=== PATIENT | male | born 1965 | race Caucasian/White ===

== ENCOUNTER 2019-02-08 18:32 | Emergency (ER) | payer OTHER ==
[2019-02-08 18:39] VITALS: BMI 34.4
--- NOTE | 2019-02-08 18:48 | PDOC ---
History of Present Illness - General Chief Complaint: Wheezing Stated Complaint: ASTHMA/NEEDS PUMP, Fever, HTN Time Seen by Provider: 02/08/19 18:48 History Source: Patient Exam Limitations: No Limitations - History of Present Illness Initial Comments: 53 yo M w a pmh of Asthma presents to the ER with difficulty breathing, wheezing , sputum production, fevers and diffuse body pains. He says he has been experiencing difficulty breathing for two months now, but his fevers and extreme shortness of breath began yesterday. He states that he feels like he is having an asthma exacerbation because this is how he usually feels when his exacerbations happen. He has needed to use his albuterol pump more frequently than usual over the past few days. He has never been intubated or to the ICU. He has not been hospitalized for an asthma exacerbation since he was 24 at which point he states he had pneumonia. He denies having chest pain, headache, blurry vision, diarrhea, constipation, dysuria, frequency, urgency, numbness, or tingling. PCP: Audie Tello PSH: None reported Social Hx: Denies smoking, drinking, or other substance usage Allergies: NKDA, patient thinks he has multiple other environmental allergies but unsure as to what they are. Past History - Past Medical History Allergies/Adverse Reactions: Allergies Allergy/AdvReac Type Severity Reaction Status Date / Time No Known Allergies Allergy Verified 02/08/19 18:40 Home Medications: Ambulatory Orders Albuterol Sulfate [Albuterol Sulfate Hfa] 8.5 gm IH TID PRN 02/08/19 Prednisone [Prednisone 50 MG TABLETS] 50 mg PO DAILY 4 Days #4 tablet 02/08/19 Asthma: Yes COPD: No HTN: (?) - Suicide/Smoking/Psychosocial Hx Smoking History: Never smoked Information on smoking cessation initiated: No Hx Alcohol Use: No Drug/Substance Use Hx: No Review of Systems - Review of Systems Able to Perform ROS?: Yes Comments:: CONSTITUTIONAL: Present: Fevers, chills Absent: no fatigue EYES: Absent: visual changes ENT: Absent: ear pain, no sore throat CARDIOVASCULAR: Absent: chest pain, no palpitations RESPIRATORY: Present: Cough, SOB, sputum production. GI: Absent: abdominal pain, no nausea, no vomiting, no constipation, no diarrhea GENITOURINARY: Absent: dysuria, no frequency, no hematuria MUSKULOSKELETAL: Present: Myalgia Absent: back pain, no arthralgia SKIN: Absent: rash NEURO: Absent: headache *Physical Exam - Vital Signs Last Vital Signs Temp Pulse Resp BP Pulse Ox 101.1 F H 96 H 20 187/102 H 96 02/08/19 18:35 02/08/19 18:35 02/08/19 18:35 02/08/19 18:35 02/08/19 18:35 - Physical Exam Comments: GENERAL: Well-appearing, well-nourished. No apparent distress. HEENT: Normocephalic, atraumatic. PERRL, EOM intact. CARDIOVASCULAR: Normal S1, S2. Tachycardic rate and regular rhythm. PULMONARY: clear evidence of respiratory distress. There is diffuse expiratory wheezes throughout all lung jimenez. No rales or rhonchi. ABDOMEN: Soft, non-distended, non-tender. EXTREMITIES: Normal ROM in all four extremities. No gross deformities. SKIN: Hot, sweaty. No rash NEUROLOGICAL: No focal neurological deficits. ED Treatment Course - LABORATORY CBC & Chemistry Diagram: 02/08/19 19:28 02/08/19 19:28 Medical Decision Making - Medical Decision Making 53 yo M w a pmh of Asthma presents to the ER with difficulty breathing, wheezing , sputum production, fevers and diffuse body pains. He says he has been experiencing difficulty breathing for two months now, but his fevers and extreme shortness of breath began yesterday. He states that he feels like he is having an asthma exacerbation because this is how he usually feels when his exacerbations happen. He has needed to use his albuterol pump more frequently than usual over the past few days. He has never been intubated or to the ICU. He has not been hospitalized for an asthma exacerbation since he was 24 at which point he states he had pneumonia. VS: Febrile, tachycardic, hypertensive DDx IBNLT: Asthma, PNA, pneumothorax, ACS/ID, influenza, Sepsis - other infection, dissection, PE. Plan: Labs, cultures, ekg, cxr, duonebs, steroids, IV hydration, flu swab, analgesia, re-assess. CXR shows no infiltrate. Flu negative. Repeat BP 165/88 2nd repeat: 157/90 Patient's lactic acid elevated to 2.7 - gave him 2 L of fluid. - Patient feels much better after duonebs and steroids. He has no more complaints and requests discharge. - Repeat lactic wnl after 1 L of fluid. Will DC patient with 4 day course of prednisone and have him FU w his PCP *DC/Admit/Observation/Transfer Diagnosis at time of Disposition: URI (upper respiratory infection), Asthma exacerbation - Discharge Dispostion Disposition: HOME Condition at time of disposition: Improved Decision to Admit order: No - Prescriptions Prescriptions: Prednisone [Prednisone 50 MG TABLETS] 50 mg PO DAILY 4 Days #4 tablet - Referrals Referrals: ON STAFF,NOT [Primary Care Provider] - Audie Tello MD [Non Staff, Medical] - - Patient Instructions Printed Discharge Instructions: Asthma -- Adult Additional Instructions: You came into the ER with shortness of breath and difficulty breathing. We gave you some breathing treatments, steroids and IV hydration which made you feel much better. Drink plenty of fluids and take motrin/ibuprofen/advil or tylenol as needed for pain control. [facility] to [facility] once a day for the next 4 days. Please make sure to go and pick it up. Come back to the ER if you experience more shortness of breath, chest pain, difficulty breathing, get a high fever, or have any other new or worsening concerns. Please make sure to call up your primary care doctor in the next 24 to 48 hours and schedule and appointment with him to follow up and make sure you are getting better. Print Language: UGANDAN - Post Discharge Activity
[2019-02-08] MEDS ORDERED: methylPREDNISolone NA SUCC 125 MG/2 ML VIAL IVPB ONE (18:56)
[2019-02-08] MEDS ORDERED: SODIUM CHLORIDE 1,000 ML IV STA (18:56)
[2019-02-08] MEDS ORDERED: ALBUTEROL SO4 0.083% IH SOL 2.5 MG/3 ML VIAL.NEB. NEB ONE (18:56)
[2019-02-08] MEDS ORDERED: SODIUM CHLORIDE 2,994 ML IV ONE (18:58)
[2019-02-08] MEDS ORDERED: IBUPROFEN 400 MG TABLET (FP) PO ONE (19:09)
[2019-02-08 19:38] LABS: BASO % 0.8 % (0-2.0); EOS % 5.5 % (0-4.5); HEMATOCRIT 45.6 % (35.4-49); HEMOGLOBIN 15.3 GM/dL (11.7-16.9); LYMPH % 17.1 % (8-40); MCH 30.4 pg (25.7-33.7); MCHC 33.5 g/dl (32.0-35.9); MEAN CELL VOLUME 90.7 fl (80-96); MEAN PLT VOLUME 8.6 fl (7.5-11.1); MONO % 7.6 % (3.8-10.2); PLATELET COUNT 239 K/MM3 (134-434); RBC 5.03 M/mm3 (4.00-5.60); WHITE BLOOD COUNT 10.4 K/mm3 (4.0-10.0)
[2019-02-08] MEDS ORDERED: IBUPROFEN 600 MG TABLET (FP) PO ONE (19:56)
[2019-02-08] MEDS ORDERED: methylPREDNISolone NA SUCC 125 MG/2 ML VIAL ONE (19:56)
[2019-02-08] MEDS ORDERED: ALBUTEROL SO4 2.5/IPRATROPIUM 0.5 INH SOL 3 ML VIAL.NEB. NEB ONE ×2 (19:56→20:15)
[2019-02-08 20:09] LABS: ALBUMIN 3.9 g/dl (3.4-5.0); ALK PHOS 92 U/L (45-117); ANION GAP 11 MMOL/L (8-16); BILIRUBIN,TOTAL 0.3 mg/dL (0.2-1); BLOOD UREA NITROGEN 21 mg/dL (7-18); CALCIUM 8.4 mg/dL (8.5-10.1); CHLORIDE 104 mmol/L (98-107); CO2 27 mmol/L (21-32); GLUCOSE,RANDOM 97 mg/dL (74-106); POTASSIUM 3.8 mmol/L (3.5-5.1); SGOT/AST 31 U/L (15-37); SGPT/ALT 76 U/L (13-61); SODIUM 142 mmol/L (136-145); TOT PROT 7.6 g/dl (6.4-8.2)
--- NOTE | 2019-02-08 20:35 | PDOC ---
Attending Attestation - ED Attending Attestation I have performed the following: I have examined & evaluated the patient, The case was reviewed & discussed with the resident, I agree w/resident's findings & plan - HPI HPI: 02/08/19 20:36 The patient is a 53 year old male, with a significant past medical history of asthma, who presents to the emergency department with, difficulty breathing, wheezing, and diffuse body aches. Patient notes his difficulty breathing has been ongoing for 2 months and the remainder of his symptoms onset yesterday. He denies any recent chest pain or headache. Allergies: NKDA Past surgical history: None reported. Social History: Nonsmoker. Denies EtOH use and recreational drug use. Primary Care Physician: Dr. Audie Tello <Inez Ibarra - Last Filed: 02/08/19 20:36> - Resident Resident Name: Joseph Morrell - HPI HPI: 2 months of symptoms characterized as mild persistent cough with sensation of chest congestion, no sputum, no fevers - Physicial Exam PE: 02/09/19 00:21 NAD, AOx3, normal wob Lungs with scattered exp wheezes, good air movement, no crackles, rales No peripheral edema, - Medical Decision Making 02/09/19 00:22 Consider worsening of chronic baseline asthma superimposed by acute asthma exacerbation likely triggered by URI significant improvement after acute tx will need f/u with pcp for eval of chronic asthma <Andriy Deleon - Last Filed: 02/09/19 00:23> Attestations - Attestations 02/08/19 20:36 Documentation prepared by Inez Ibarra, acting as site medical director for Andriy Deleon MD. <Inez Ibarra - Last Filed: 02/08/19 20:36>
[2019-02-08 22:37] VITALS: BP 157/90; PULSE 86; TEMP 99.5
--- NOTE | 2019-02-09 10:32 | EKG ---
Test Reason : Blood Pressure : / mmHG Vent. Rate : 107 BPM Atrial Rate : 107 BPM P-R Int : 154 ms QRS Dur : 080 ms QT Int : 320 ms P-R-T Axes : 065 063 070 degrees QTc Int : 427 ms SINUS TACHYCARDIA NONSPECIFIC ST ABNORMALITY CANNOT RULE OUT INFERIOR INFARCT , AGE UNDETERMINED NO PREVIOUS ECGS AVAILABLE Confirmed by SHELLY KIM MD ([id number]) on 02/09/2019 10:32:04 AM Referred By: Confirmed By:SHELLY KIM MD
== END 2019-02-08 23:56 | disposition home or self-care (01) ==
LOC: JER 18:32
PROC: 3E0F7GC Introduction of Other Therapeutic Substance into Respiratory Tract, Via Natural or Artificial Opening (ICD-10-PCS; principal; 2019-02-08)
PROC: 3E0F7GC Introduction of Other Therapeutic Substance into Respiratory Tract, Via Natural or Artificial Opening (ICD-10-PCS; 2019-02-08)
PROC: 3E0337Z Introduction of Electrolytic and Water Balance Substance into Peripheral Vein, Percutaneous Approach (ICD-10-PCS; 2019-02-08)
PROC: 3E0333Z Introduction of Anti-inflammatory into Peripheral Vein, Percutaneous Approach (ICD-10-PCS; 2019-02-08)
DX: J45.901 Unspecified asthma with (acute) exacerbation (principal)
CPT/HCPCS: 36415; 71046-TC-FY; 80053; 83605; 84484; 85025; 87040; 87804; 93005; 93010; 99282-25; J7030

== ENCOUNTER 2019-03-12 11:45 | Emergency (ER) | payer OTHER ==
[2019-03-12 12:04] VITALS: BP 172/95; PULSE 96; TEMP 98.6; BMI 35.2
[2019-03-12] MEDS ORDERED: DEXAMETHASONE SOD PHOSPHATE 10 MG/1 ML VIAL IVPUSH ONE (13:19)
--- NOTE | 2019-03-12 13:19 | PDOC ---
History of Present Illness <Babatunde Isidro - Last Filed: 03/12/19 14:52> <Tracy Gonzales - Last Filed: 03/12/19 15:56> - General Chief Complaint: Asthma Stated Complaint: ASTHMA Time Seen by Provider: 03/12/19 12:50 Past History <Babatunde Isidro - Last Filed: 03/12/19 14:52> - Past Medical History Asthma: Yes COPD: No HTN: (?) - Immunization History Immunization Up to Date: Yes - Suicide/Smoking/Psychosocial Hx Smoking History: Never smoked Information on smoking cessation initiated: No Hx Alcohol Use: No Drug/Substance Use Hx: No <Tracy Gonzales - Last Filed: 03/12/19 15:56> - Past Medical History Allergies/Adverse Reactions: Allergies Allergy/AdvReac Type Severity Reaction Status Date / Time No Known Allergies Allergy Verified 03/12/19 12:01 Home Medications: Ambulatory Orders Albuterol Sulfate [Albuterol Sulfate Hfa] 8.5 gm IH TID PRN 02/08/19 Albuterol 0.083% Nebulizer Annalise [Ventolin 0.083% Nebulizer Soln -] 1 neb NEB Q4H #20 vial 03/12/19 Albuterol Sulfate Inhaler - [Ventolin HFA Inhaler -] 1 - 2 inh PO Q4H #1 inhaler 03/12/19 Methylprednisolone [Medrol Dose Mitch] 4 mg PO ASDIR #21 tablet 03/12/19 *Physical Exam - Vital Signs Last Vital Signs Temp Pulse Resp BP Pulse Ox 98.6 F 96 H 17 172/95 H 93 L 03/12/19 12:01 03/12/19 12:01 03/12/19 12:01 03/12/19 12:01 03/12/19 13:11 <Babatunde Isidro - Last Filed: 03/12/19 14:52> - Vital Signs Last Vital Signs Temp Pulse Resp BP Pulse Ox 98.6 F 96 H 17 172/95 H 93 L 03/12/19 12:01 03/12/19 12:01 03/12/19 12:01 03/12/19 12:01 03/12/19 13:11 <Tracy Gonzales - Last Filed: 03/12/19 15:56> Heart Score/ECG Review #1 ECG reviewed & interpreted by me at: 14:35 General ECG Interpretation: Sinus Rhythm, Normal Rate (87), Normal Intervals ( qtc 438), No acute ischemic changes <Babatunde Isidro - Last Filed: 03/12/19 14:52> ED Treatment Course - LABORATORY CBC & Chemistry Diagram: 03/12/19 13:30 03/12/19 13:30 - ADDITIONAL ORDERS Additional order review: Laboratory Results 03/12/19 13:30 Sodium Cancelled Potassium Cancelled Chloride Cancelled Carbon Dioxide Cancelled Anion Gap Cancelled BUN Cancelled Creatinine Cancelled Creat Clearance w eGFR Cancelled Random Glucose Cancelled Calcium Cancelled Total Bilirubin Cancelled AST Cancelled ALT Cancelled Alkaline Phosphatase Cancelled Total Protein Cancelled Albumin Cancelled 03/12/19 13:30 RBC Cancelled MCV Cancelled MCHC Cancelled RDW Cancelled MPV Cancelled Neutrophils % Cancelled Lymphocytes % Cancelled Monocytes % Cancelled Eosinophils % Cancelled Basophils % Cancelled - Medications Given in the ED: ED Medications Discontinued Medications Generic Name Dose Route Start Last Admin Trade Name Karlos PRN Reason Stop Dose Admin Albuterol/Ipratropium 1 amp 03/12/19 13:30 03/12/19 14:47 Duoneb - NEB 03/12/19 14:16 1 amp Q15M FUNMILAYO Administration Dexamethasone Sodium Phosphate 10 mg 03/12/19 13:19 03/12/19 13:48 Decadron Injection - IVPUSH 03/12/19 13:20 10 mg ONCE ONE Administration <Babatunde Isidro - Last Filed: 03/12/19 14:52> - LABORATORY CBC & Chemistry Diagram: 03/12/19 14:42 03/12/19 14:45 <Tracy Gonzales - Last Filed: 03/12/19 15:56> *DC/Admit/Observation/Transfer <Babatunde Isidro - Last Filed: 03/12/19 14:52> - Discharge Dispostion Decision to Admit order: No <Tracy Gonzales - Last Filed: 03/12/19 15:56> Diagnosis at time of Disposition: Asthma exacerbation Qualifiers: Asthma severity: mild Asthma persistence: intermittent Qualified Code(s): J45.21 - Mild intermittent asthma with (acute) exacerbation - Discharge Dispostion Disposition: HOME Condition at time of disposition: Stable - Referrals Referrals: Fransisco Leonardo MD, [Staff Physician] - - Patient Instructions Printed Discharge Instructions: Asthma -- Adult Additional Instructions: You were evaluated for your asthma today Please take the nebulizer treatments and prednisone as directed Please follow up with Pulmonology. A referral has been provided to you Return to the ED for increased difficulty breathing, wheezing, fever, or if you have any changes in your symptoms - Post Discharge Activity Forms/Work/School Notes: Back to Work
[2019-03-12] MEDS ORDERED: DEXAMETHASONE SOD PHOSPHATE 10 MG/1 ML VIAL ONE (13:35)
[2019-03-12] MEDS ORDERED: ALBUTEROL SO4 2.5/IPRATROPIUM 0.5 INH SOL 3 ML VIAL.NEB. NEB ONE ×4 (13:36→15:22)
[2019-03-12] MEDS: ALBUTEROL SO4 2.5/IPRATROPIUM 0.5 INH SOL 3 ML VIAL.NEB. NEB SCH ×4 (13:48→15:27)
[2019-03-12 14:57] LABS: BASO % 0.6 % (0-2.0); EOS % 5.4 % (0-4.5); HEMATOCRIT 45.6 % (35.4-49); HEMOGLOBIN 15.2 GM/dL (11.7-16.9); LYMPH % 27.4 % (8-40); MCH 30.4 pg (25.7-33.7); MCHC 33.5 g/dl (32.0-35.9); MEAN CELL VOLUME 90.9 fl (80-96); MEAN PLT VOLUME 8.4 fl (7.5-11.1); MONO % 8.9 % (3.8-10.2); NEUT % 57.7 % (42.8-82.8); PLATELET COUNT 239 K/MM3 (134-434); RBC 5.01 M/mm3 (4.00-5.60); RDW 13.6 % (11.9-15.9); WHITE BLOOD COUNT 9.7 K/mm3 (4.0-10.0)
[2019-03-12 15:45] LABS: ALBUMIN 3.8 g/dl (3.4-5.0); ALK PHOS 96 U/L (45-117); ANION GAP 5 MMOL/L (8-16); BILIRUBIN,TOTAL 0.4 mg/dL (0.2-1); BLOOD UREA NITROGEN 16 mg/dL (7-18); CALCIUM 9.3 mg/dL (8.5-10.1); CHLORIDE 107 mmol/L (98-107); CO2 28 mmol/L (21-32); CREATININE 0.9 mg/dL (0.55-1.3); GLUCOSE,RANDOM 95 mg/dL (74-106); POTASSIUM 4.2 mmol/L (3.5-5.1); SGOT/AST 41 U/L (15-37); SGPT/ALT 80 U/L (13-61); SODIUM 140 mmol/L (136-145); TOT PROT 7.7 g/dl (6.4-8.2)
--- NOTE | 2019-03-13 14:25 | EKG ---
Test Reason : Blood Pressure : / mmHG Vent. Rate : 087 BPM Atrial Rate : 087 BPM P-R Int : 154 ms QRS Dur : 088 ms QT Int : 364 ms P-R-T Axes : 051 034 050 degrees QTc Int : 438 ms NORMAL SINUS RHYTHM NORMAL ECG WHEN COMPARED WITH ECG OF 08-FEB-2019 19:01, ST NO LONGER ELEVATED IN INFERIOR LEADS Confirmed by MD ILIA, DAHIANA ([id number]) on 03/13/2019 2:24:33 PM Referred By: Confirmed By:DAHIANA MORILLO MD
== END 2019-03-12 16:05 | disposition home or self-care (01) ==
LOC: JER 11:45
PROC: 3E0F7GC Introduction of Other Therapeutic Substance into Respiratory Tract, Via Natural or Artificial Opening (ICD-10-PCS; principal; 2019-03-12)
PROC: 3E0333Z Introduction of Anti-inflammatory into Peripheral Vein, Percutaneous Approach (ICD-10-PCS; 2019-03-12)
DX: J45.21 Mild intermittent asthma with (acute) exacerbation (principal)
CPT/HCPCS: 36415; 71046-TC-FY; 80053; 85025; 93005; 93010; 94640; 96374; 99282-25; J1100

== ENCOUNTER 2019-05-27 11:13 | Emergency (ER) | payer OTHER ==
[2019-05-27 11:21] VITALS: BMI 34.4
--- NOTE | 2019-05-27 12:19 | PDOC ---
History of Present Illness - General Chief Complaint: Chest Pain Stated Complaint: CHEST PAIN Time Seen by Provider: 05/27/19 12:12 History Source: Patient Exam Limitations: No Limitations - History of Present Illness Initial Comments: 05/27/19 12:22 54yo neversmoker man with PMH asthma, GERD, no cardiac history, presenting with sudden onset, non-radiating, central and epigastric, intermittent, nonexertional , stabbing chest pain after exercise this morning, self resolving with time before spontaneously recurring. Denies associated SOB, diaphoresis, endorses some nausea, no vomiting. 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 Denies fevers, chills, shortness of breath, cough, recent travel, recent illness. Denies back pain, difficulty breathing, recent immobilization, cancer Hx, long travels, trauma to the thorax. Reports that he had a friend after chest pain recently and is very concerned the same thing is happening to him. Reassured. Presenting Symptoms: Chest Pain, Nausea, Short of Breath Timing/Duration: reports: intermittent Severity/Quality: reports: sharp, stabbing Location: reports: central, epigastric Chest Pain Radiation: reports: no radiation Activities at Onset: reports: exertion Prior Chest Pain/Cardiac Workup: reports: No prior chest pain, No prior cardiac workup Modifying Factors: improves with: other (self resolving) Nitro Today/Relief: Yes: no nitro taken today Aspirin Received prior to arrival (Core Measure): Yes: no aspirin today Past History - Travel Traveled outside of the country in the last 30 days: No Close contact w/someone who was outside of country & ill: No - Past Medical History Allergies/Adverse Reactions: Allergies Allergy/AdvReac Type Severity Reaction Status Date / Time No Known Allergies Allergy Verified 05/27/19 11:21 Home Medications: Ambulatory Orders Loratadine [Claritin] 10 mg PO DAILY 05/27/19 Meloxicam [Mobic] 7.5 mg PO DAILY 05/27/19 Omeprazole 40 mg PO DAILY 05/27/19 Asthma: Yes COPD: No HTN: (?) - Immunization History Immunization Up to Date: Yes - Suicide/Smoking/Psychosocial Hx Smoking History: Never smoked Hx Alcohol Use: No Drug/Substance Use Hx: No Cardiac Specific PMH - Complaint Specific PMHX Abdominal Aortic Aneurysm: No Angina: No Cardiac Arrhythmia: No Cardiac Stent: No GERD: Yes Myocardial Infarction: No Pacemaker: No Pulmonary Embolus: No Valvular Heart Disease: No Peripheral Vascular Disease: No Review of Systems - Review of Systems Able to Perform ROS?: Yes Is the patient limited Thai proficient: No Constitutional: Yes: See HPI. No: Chills, Diaphoresis, Fever HEENTM: Yes: See HPI. No: Symptoms Reported Respiratory: Yes: See HPI. No: Symptoms reported, Cough, Shortness of Breath, Wheezing Cardiac (ROS): Yes: See HPI, Chest Pain. No: Palpitations, Syncope, Chest Tightness ABD/GI: Yes: See HPI. No: Symptoms Reported : Yes: See HPI Musculoskeletal: No: Symptoms Reported, Muscle Pain Integumentary: Yes: See HPI Neurological: Yes: See HPI All Other Systems: Reviewed and Negative *Physical Exam - Vital Signs Last Vital Signs Temp Pulse Resp BP Pulse Ox 97.8 F 88 18 150/98 97 05/27/19 11:19 05/27/19 13:26 05/27/19 13:26 05/27/19 13:26 05/27/19 13:26 - Physical Exam Comments: 05/27/19 12:50 Vitals reviewed, notable for tachycardia Gen: WDWN man, no acute distress, watching netflix on his phone CV: normal chest morphology, nontender to palpation, no crepitus, RRR, normal s1 /s2, no murmurs appreciated Pulm: ctabl, breathing comfortably on room air, no wheezes rales or rhonchi Abd: soft, nontender, nondistended, no scars or rashes Ext: warm and well perfused, no clubbing cyanosis or edema Skin: no rashes, bruises or other markings, not diaphoretic Pulses: 2+ radial pulse Heart Score/ECG Review - History History: Slightly suspicious - Electrocardiogram EKG: Normal - Age Age: 45-65 - Risk Factors Risk Factors Heart Score: No Hx Hypercholesterolemia, No Hx Hypertension, No Hx Diabetes, No Smoking History, Yes Positive family hx of cardiac disease Based on the list above the patient has:: 1-2 risk factors ED Treatment Course - LABORATORY CBC & Chemistry Diagram: 05/27/19 13:19 05/27/19 13:19 - ADDITIONAL ORDERS Additional order review: Laboratory Results 05/27/19 13:19 Sodium 141 Potassium 4.8 Chloride 108 H Carbon Dioxide 30 Anion Gap 3 L BUN 20.6 H Creatinine 1.1 Est GFR (CKD-EPI)AfAm 86.52 Est GFR (CKD-EPI)NonAf 74.65 Random Glucose 92 Calcium 9.4 Total Bilirubin 0.6 AST 73 H ALT 98 H Alkaline Phosphatase 86 Creatine Kinase 274 Creatine Kinase Index 0.4 CK-MB (CK-2) 1.2 Troponin I < 0.02 Total Protein 7.7 Albumin 4.0 Lipase 118 05/27/19 13:19 RBC 4.87 MCV 89.0 MCHC 34.5 RDW 13.8 MPV 9.1 Neutrophils % 78.2 D Lymphocytes % 15.5 D Monocytes % 5.0 Eosinophils % 0.6 D Basophils % 0.7 - Medications Given in the ED: ED Medications Discontinued Medications Generic Name Dose Route Start Last Admin Trade Name Freq PRN Reason Stop Dose Admin Al Hydroxide/Mg Hydroxide 30 ml 05/27/19 14:18 05/27/19 15:00 Mylanta Oral Suspension - PO 05/27/19 14:19 30 ml ONCE ONE Administration Aspirin 162 mg 05/27/19 12:42 05/27/19 13:15 Asa - PO 05/27/19 12:43 162 mg ONCE ONE Administration Sodium Chloride 1,000 mls @ 1,000 mls/hr 05/27/19 14:08 05/27/19 15:43 Normal Saline - IV 05/27/19 15:07 1,000 mls/hr .Q1H ONE Administration Pantoprazole Sodium 40 mg 05/27/19 14:18 05/27/19 15:00 Protonix - PO 05/27/19 14:19 40 mg ONCE ONE Administration Medical Decision Making - Medical Decision Making 05/27/19 12:56 54yo neversmoker man with PMH asthma, GERD, no cardiac history, presenting with sudden onset, non-radiating, central and epigastric, intermittent, nonexertional , stabbing chest pain after exercise this morning, self resolving with time before spontaneously recurring. DDX includes r/o ACS, pneumothorax, less likely dissection given presentation and risk factors, less likely GERD given different quality and timing. MSK strain / sprain is less likely given clinical exam and intermittent resolution / lack of association with movement. Tamponade and PE also less likely in setting of stable vitals and Wells of 1.5 for tachycardia. - Cardiac profile - CBC, CMP - EKG without ischemic changes - CXR, PA and LAT - phototypesetting equipment monitor - ASA given 05/27/19 14:19 Patient endorsing improved chest pain, now reporting more of a burning quality. Given protonix 40 PO, maalox. -Troponin negative - Added on Lipase - CBC/CMP wnl 05/27/19 16:09 - Lipase wnl - Pt asymptomatic - Return precautions discussed, verbalized understanding DDX: Most likely GERD given presentation and resolution with protonix/maalox ACS / Thoracic pathology ruled out Dispo: Home *DC/Admit/Observation/Transfer Diagnosis at time of Disposition: Chest pain at rest, GERD (gastroesophageal reflux disease) - Discharge Dispostion Disposition: HOME Condition at time of disposition: Good Decision to Admit order: No - Referrals Referrals: Michael Hunt MD [Primary Care Provider] - - Patient Instructions Printed Discharge Instructions: DI for Gastroesophageal Reflux Disease (GERD), DI for Atypical Chest Pain, DI for Chest Pain - Post Discharge Activity
[2019-05-27] MEDS ORDERED: ASPIRIN 81 MG CHEWABLE TABLETS PO ONE (12:42)
[2019-05-27] MEDS ORDERED: ASPIRIN 81 MG CHEWABLE TABLETS ONE (12:55)
[2019-05-27 13:39] LABS: BASO % 0.7 % (0-2.0); EOS % 0.6 % (0-4.5); HEMATOCRIT 43.4 % (35.4-49); LYMPH % 15.5 % (8-40); MCH 30.7 pg (25.7-33.7); MCHC 34.5 g/dl (32.0-35.9); MEAN PLT VOLUME 9.1 fl (7.5-11.1); NEUT % 78.2 % (42.8-82.8); RBC 4.87 M/mm3 (4.00-5.60); RDW 13.8 % (11.9-15.9); WHITE BLOOD COUNT 10.8 K/mm3 (4.0-10.0)
[2019-05-27 13:52] LABS: PLATELET COUNT 243 K/MM3 (134-434)
[2019-05-27 14:00] LABS: ALK PHOS 86 U/L (45-117); ANION GAP 3 MMOL/L (8-16); BILIRUBIN,TOTAL 0.6 mg/dL (0.2-1); BLOOD UREA NITROGEN 20.6 mg/dL (7-18); CALCIUM 9.4 mg/dL (8.5-10.1); CHLORIDE 108 mmol/L (98-107); CO2 30 mmol/L (21-32); CREATININE 1.1 mg/dL (0.55-1.3); GLUCOSE,RANDOM 92 mg/dL (74-106); POTASSIUM 4.8 mmol/L (3.5-5.1); SGOT/AST 73 U/L (15-37); SGPT/ALT 98 U/L (13-61); SODIUM 141 mmol/L (136-145); TOT PROT 7.7 g/dl (6.4-8.2)
[2019-05-27] MEDS ORDERED: SODIUM CHLORIDE 1,000 ML IV ONE (14:08)
--- NOTE | 2019-05-27 14:10 | PDOC ---
Documentation entered by Mary Ann Null SCRIBE, acting as scribe for Ezequiel Fuller MD. Ezequiel Fuller MD: This documentation has been prepared by the scribe, Mary Ann Null SCRIBE, under my direction and personally reviewed by me in its entirety. I confirm that the documentation accurately reflects all work, treatment, procedures, and medical decision making performed by me. Attending Attestation - Resident Resident Name: HarrisonAnival - ED Attending Attestation I have performed the following: I have examined & evaluated the patient, The case was reviewed & discussed with the resident, I agree w/resident's findings & plan, Exceptions are as noted - HPI HPI: 05/27/19 12:44 The patient is a 54-year-old male, with a past medical history of asthma, who presents to the ED with chest pain that began around 9am this morning after exercising. The patient reports that he was lifting light weights and began to feel the pain after his workout, he was asymptomatic during his excercising. He did not feel like he strained himself. The pain is located in the mid chest to epigastric region and he describes it as intermittent, stabbing/burning in sensation, nonradiating, nonpleuritic. He reports associated nausea but no vomiting. He denies experiencing chest pain in the past. Denies any exertional sypmtoms with his excerciuse or change in excercise tolerance The patient denies fevers, chills, vomiting, or diarrhea. Denies any palpitations or shortness of breath. Denies any weakness, dizziness, or changes in strength or sensation. Allergies: NKA Social History: denies smoking, etoh abuse, recreational drug use Surgical History: None reported. Family: No known cardiac histroy in parents or siblings - Physicial Exam PE: 05/27/19 12:45 GENERAL: The patient is awake, alert, and fully oriented, Nontoxic - in no acute distress. HEAD: Normocephalic, atraumatic. EYES: extraocular movements intact, sclera anicteric, conjunctiva clear. ENT: Normal voice, Moist mucous membranes. NECK: Normal range of motion, supple LUNGS: Breath sounds equal, clear to auscultation bilaterally. No wheezes, no rhonchi, no rales. HEART: Regular rate and rhythm, without murmur, rub or gallop. ABDOMEN: Soft, nontender, No guarding, no rebound.No CVA tenderness EXTREMITIES: Normal range of motion, no edema. No cyanosis. No erythema, or tenderness. NEUROLOGICAL: No facial assymetry, Normal speech, PSYCH: Normal mood, normal affect. SKIN: Warm, Dry, normal turgor - Medical Decision Making 05/27/19 12:34 54y hx of asthma, no known cardiac hx, presents with chest pain after excercising, described as a central burning/stabbing cp that came and then resolves. is non exertional and itermittent. assocaited with nausea no associated vomiting, diaphoresis, radiation. on exam pt well appearing, in no distress, exam non focal pt noted tachyardic, susuepct due to dehyration will hydrate orally dddx - consider acs, however atypical for acs. psosible gastritis lbas, pepcid/maalox fluids for hydration 05/27/19 14:23 lbas reviewed trops neg HR normalized with fluids suspect acid reflux pts burning cp resolved 05/27/19 15:23 lipase neg pt asymptomatic will dc with pmd fu and returrn precautions Heart Score/ECG Review - ECG Impressions Comment:: 05/27/19 14:24 Twelve-lead EKG was performed and reviewed by me. There is normal sinus rhythm rate of 109 q wave in III
[2019-05-27] MEDS ORDERED: MAG HYDROX/AL HYDROX/SIMETH 30 ML UNIT-DOSE CUP PO ONE (14:18)
[2019-05-27] MEDS ORDERED: PANTOPRAZOLE 40 MG TABLET (FP) PO ONE (14:18)
[2019-05-27] MEDS ORDERED: MAG HYDROX/AL HYDROX/SIMETH 30 ML UNIT-DOSE CUP ONE (15:26)
[2019-05-27] MEDS ORDERED: PANTOPRAZOLE 40 MG TABLET (FP) ONE (15:26)
--- NOTE | 2019-05-27 15:28 | EKG ---
Test Reason : Blood Pressure : / mmHG Vent. Rate : 109 BPM Atrial Rate : 109 BPM P-R Int : 142 ms QRS Dur : 090 ms QT Int : 334 ms P-R-T Axes : 050 011 032 degrees QTc Int : 449 ms SINUS TACHYCARDIA INFERIOR INFARCT , AGE UNDETERMINED ABNORMAL ECG WHEN COMPARED WITH ECG OF 12-MAR-2019 14:35, INFERIOR INFARCT IS NOW PRESENT Confirmed by JULIAN FOSS, CLARISA ([id number]) on 05/27/2019 3:28:12 PM Referred By: Confirmed By:CLARISA JORDAN MD
[2019-05-27 15:58] LABS: LIPASE 118 U/L (73-393)
[2019-05-27 16:45] VITALS: BP 175/85; PULSE 106; TEMP 98.6
== END 2019-05-27 16:40 | disposition home or self-care (01) ==
LOC: JER 11:13
PROC: 3E0337Z Introduction of Electrolytic and Water Balance Substance into Peripheral Vein, Percutaneous Approach (ICD-10-PCS; principal; 2019-05-27)
DX: K21.9 Gastro-esophageal reflux disease without esophagitis (principal); R07.9 Chest pain, unspecified
CPT/HCPCS: 36415; 71046-TC-FY; 80053; 82550; 82553; 83690; 84484; 85025; 93005; 93010; 96360; 99283-25; J7030

== ENCOUNTER 2019-11-20 18:58 | Emergency (ER) | payer OTHER ==
[2019-11-20 19:09] VITALS: BMI 34.9
[2019-11-20] MEDS ORDERED: SODIUM CHLORIDE 1,000 ML IV STA (20:42)
[2019-11-20] MEDS ORDERED: methylPREDNISolone NA SUCC 125 MG/2 ML VIAL IVPUSH ONE (20:43)
--- NOTE | 2019-11-20 20:48 | PDOC ---
*Physical Exam - Vital Signs Last Vital Signs Temp Pulse Resp BP Pulse Ox 97.7 F 115 H 20 159/92 98 11/20/19 19:05 11/20/19 19:05 11/20/19 19:05 11/20/19 19:05 11/20/19 19:05 ED Treatment Course - LABORATORY CBC & Chemistry Diagram: 11/20/19 21:25 11/20/19 21:25 Medical Decision Making - Medical Decision Making 11/20/19 20:48 Patient seen by the advanced practice provider under my direct supervision. Ancillary testing reviewed as necessary. I agree with plan as outlined by the advanced practice provider. Discharge - Discharge Information Problems reviewed: Yes Clinical Impression/Diagnosis: Asthma exacerbation, Dyspnea - Follow up/Referral Referrals: Onur Coleman MD [Primary Care Provider] - - Patient Discharge Instructions Additional Instructions: You were seen in the ER for asthma exacerbation. We gave you steroids and breathing treatments which resolved your symptoms while you were here in the department. We did blood work and a chest x-ray which did not show any concerning findings. After our assessment, we do not believe you are having a medical emergency at this time, and we believe you are safe to go home. We are sending a prescription for prednisone to your pharmacy. Please take the whole course as prescribed, and follow up with your primary care provider(s) in the next 1-3 days. Call their clinic [facility], tell them you were seen in the ER for asthma, and tell them you need an appointment. Please come back to the ER at any time (24 hours a day) for any new or worsening symptoms, like worsened wheezing/shortness of breath that is not relieved with your home medications, new severe chest pain, loss of consciousness, or seizure. If you are having severe or life threatening symptoms, or symptoms that make it unsafe to drive or have someone drive you, please call 911. - Post Discharge Activity
--- NOTE | 2019-11-20 20:50 | PDOC ---
History of Present Illness - General Chief Complaint: Asthma Stated Complaint: ASTHMA Time Seen by Provider: 11/20/19 20:34 History Source: Patient, Old Records Exam Limitations: No Limitations - History of Present Illness Initial Comments: 11/20/19 20:44 HISTORY OF PRESENT ILLNESS: 54-year-old male past medical history of asthma (no intubations or ICU stays; 3-4 annual visits for asthma) and vocal cord polyps who presents to the emergency department for evaluation of 2 weeks of chest tightness, shortness of breath and dry cough. Patient reports taking his nebulizer treatments at home with minimal relief of symptoms. Patient reports 2 pillow orthopnea. Denies any difficulty going up and down hills or stairs. He denies PND. He denies any fevers or chills. He denies headache, nausea, vomiting, diarrhea, constipation, urinary difficulties. No recent travel or sick contacts. PAST MEDICAL HISTORY: See HPI SURGICAL HISTORY: Denies ALLERGIES: No known drug allergies REVIEW OF SYSTEMS General/Constitutional: Denies fever or chills. Denies weakness, weight change. HEENT: Denies change in vision. Denies ear pain or discharge. Denies sore throat. Cardiovascular: See HPI Respiratory: See HPI Gastrointestinal: Denies nausea, vomiting, diarrhea or constipation. Denies rectal bleeding. Genitourinary: Denies dysuria, frequency, or change in urination. Musculoskeletal: Denies joint or muscle swelling or pain. Denies neck or back pain. Skin and breasts: Denies rash or easy bruising. Neurologic: Denies headache, vertigo, loss of consciousness, or loss of sensation. Psychiatric: Denies depression or anxiety. Endocrine: Denies increased thirst. Denies abnormal weight change. Hematologic/Lymphatic: Denies anemia, easy bleeding, or history of blood clots. Allergic/Immunologic: Denies hives or skin allergy. Denies latex allergy. PHYSICAL EXAM General Appearance: Well-appearing, appropriately dressed. No apparent distress , no intoxication. HEENT: EOMI, PERRLA, normal ENT inspection, normal voice, TMs normal, pharynx normal. No conjunctival pallor. No photophobia, scleral icterus. Neck: Supple. Trachea midline. No tenderness, rigidity, carotid bruit, stridor , lymphadenopathy, or thyromegaly. Respiratory/Chest: Lungs CTAB. No shortness of breath, chest tenderness, respiratory distress, accessory muscle use. Speaking full sentences. Hoarse raspy voice. Breath sounds diminished bilaterally with right-sided wheezing in all jimenez. Cardiovascular: RRR. S1, S2. No JVD, murmur, bradycardia, tachycardia. Vascular Pulses: Dorsalis-Pedis (R): 2+, Dorsalis-Pedis (L): 2+ Gastrointestinal/Abdominal: Normal bowel sounds. Abdomen soft, non-distended. No tenderness or rebound tenderness. No organomegaly, pulsatile mass, guarding, hernia, hepatomegaly, splenomegaly. Lymphatic: No adenopathy, tenderness. Musculoskeletal/Extremities: Normal inspection. FROM of all extremities, normal capillary refill. Pelvis Stable. No CVA tenderness. No tenderness to extremities, pedal edema, swelling, erythema or deformity. Integumentary: Appropriate color, dry, warm. No cyanosis, erythema, jaundice or rash Neurologic: cotton broker II-XII intact. Fully oriented, alert. Appropriate mood/affect. Motor strength 5/5. No appreciable EOM palsy, facial droop or sensory deficit. Past History - Past Medical History Allergies/Adverse Reactions: Allergies Allergy/AdvReac Type Severity Reaction Status Date / Time No Known Allergies Allergy Verified 05/27/19 11:21 Home Medications: Ambulatory Orders Loratadine [Claritin] 10 mg PO DAILY 05/27/19 Meloxicam [Mobic] 7.5 mg PO DAILY 05/27/19 Omeprazole 40 mg PO DAILY 05/27/19 Asthma: Yes COPD: No Diabetes: No HTN: No Hypercholesterolemia: No - Immunization History Immunization Up to Date: Yes - Psycho Social/Smoking Cessation Hx Smoking History: Never smoked Hx Alcohol Use: No Drug/Substance Use Hx: No *Physical Exam - Vital Signs Last Vital Signs Temp Pulse Resp BP Pulse Ox 97.7 F 115 H 20 159/92 98 11/20/19 19:05 11/20/19 19:05 11/20/19 19:05 11/20/19 19:05 11/20/19 19:05 ED Treatment Course - RADIOLOGY Radiology Studies Ordered: Category Date Time Status CHEST PA & LAT [RAD] Stat Radiology 11/20/19 20:42 Ordered Medical Decision Making - Medical Decision Making 11/20/19 20:48 A/P: 54-year-old male with 2 weeks of chest tightness shortness of breath Patient tachycardic with rate of 115 upon arrival. Mildly hypertensive 159/92. Afebrile at this time. Differential diagnosis includes but is not limited to-pulmonary embolism, ACS/[place] , asthma exacerbation, heart failure, pneumonia, aortic dissection Labs including cardiac profile d-dimer Chest x-ray EKG Methylprednisone 125 mg IV push Normal saline 1 L IV bolus DuoNeb's Reassess Discharge - Follow up/Referral Referrals: Onur Coleman MD [Primary Care Provider] - - Patient Discharge Instructions - Post Discharge Activity
--- NOTE | 2019-11-20 21:06 | PDOC ---
History of Present Illness - General Chief Complaint: Asthma Stated Complaint: ASTHMA Time Seen by Provider: 11/20/19 20:34 History Source: Patient Exam Limitations: No Limitations - History of Present Illness Initial Comments: 11/20/19 20:57 54YOM with h/o asthma (dx last year, only seen in the ED, placed on steroids at that time but not admitted or intubated and has not been on steroids since then ) and vocal cord polypectomy 2-3 months ago, who p/w 2 weeks SOB, cough with white sputum, wheezing, and anterior central chest tightness similar to what he experienced last year. He denies pain radiation, n/v/d/c, rash, abdominal pain, or other symptoms. States nobody at home has been sick with these symptoms. Tried using his albuterol neb 3 times today and this worked well but relief was short lived. Smoked cigarettes in the past many years ago. Past History - Past Medical History Allergies/Adverse Reactions: Allergies Allergy/AdvReac Type Severity Reaction Status Date / Time No Known Allergies Allergy Verified 05/27/19 11:21 Home Medications: Ambulatory Orders Albuterol Sulfate Inhaler - [Ventolin Hfa Inhaler -] 1 - 2 inh PO QID 11/20/19 levoFLOXacin [Levaquin] 750 mg PO DAILY #4 tab 11/21/19 predniSONE [Deltasone -] 20 mg PO DAILY #8 tablet 11/21/19 Asthma: Yes COPD: No Diabetes: No HTN: No Hypercholesterolemia: No - Immunization History Immunization Up to Date: Yes - Psycho Social/Smoking Cessation Hx Smoking History: Never smoked Hx Alcohol Use: No Drug/Substance Use Hx: No Respiratory Specific PMHX - Complaint Specific PMHX Hx Pulmonary Embolus: No Review of Systems - Review of Systems Able to Perform ROS?: Yes Comments:: 11/20/19 21:07 GEN: no fever, chills, malaise, or generalized weakness HEENT: no ear pain, congestion, sore throat, vision change, or eye pain CV: chest pain, no palpitations, lightheadedness, syncope, or edema RESP: SOB, wheezing, cough GI: no abdominal pain, nausea, vomiting, diarrhea, constipation, or rectal bleed : no dysuria, hematuria, or discharge MSK: no muscle weakness or pain, no joint swelling or pain NEURO: no headache, vertigo, numbness, tingling, or focal weakness PSYCH: no SI, HI, or behavior change SKIN: no jaundice, rash, lesions, or unexplained bruises ROS otherwise negative except as noted in HPI *Physical Exam - Vital Signs Last Vital Signs Temp Pulse Resp BP Pulse Ox 97.7 F 115 H 20 159/92 98 11/20/19 19:05 11/20/19 19:05 11/20/19 19:05 11/20/19 19:05 11/20/19 19:05 - Physical Exam 11/20/19 21:15 GENERAL: well-appearing, A/Ox4, no distress, answers questions appropriately HEENT: PERRLA, EOMI, moist mucous membranes NECK/BACK: no midline ttp, no spinal stepoff or deformity, no hematoma, full ROM , neck supple CARDIOVASCULAR: regular rate/rhythm, no MGR, strong peripheral pulses, capillary refill <2 seconds, extremities wwp, no edema LUNGS/RESPIRATORY: good air movement, no wheezing, occasional cough GI/ABDOMEN: central obesity, symmetric [id number], normoactive BS, soft, no ttp, no midline pulsatile masses : no CVA tenderness EXTREMITIES: no muscle atrophy, no acute deformity SKIN: warm and dry, no pallor, no jaundice, no rash, no bruising, no skin breakdown, no cuts, no lesions NEUROLOGICAL: GCS 15, CN II-XII grossly intact, 5/5 strength proximally and distally, no facial droop Heart Score/ECG Review - History History: Slightly suspicious - Electrocardiogram EKG: Normal - Age Age: 45-65 - Risk Factors Risk Factors Heart Score: Yes Hx Obesity Based on the list above the patient has:: No risk factors known - Troponin Troponin: </= normal limit - Score Heart Score - Total: 1 #1 11/20/19 21:34 Sinus rhythm, rate 85, normal axis and intervals, no ischemic ST-T changes ED Treatment Course - LABORATORY CBC & Chemistry Diagram: 11/20/19 21:25 11/20/19 21:25 Medical Decision Making - Medical Decision Making 11/20/19 21:06 Pt with h/o asthma p/w SOB and cough similar to prior asthma exacerbation. Initial Vital Signs Temp Pulse Resp BP Pulse Ox 97.7 F 115 H 20 159/92 98 11/20/19 19:05 11/20/19 19:05 11/20/19 19:05 11/20/19 19:05 11/20/19 19:05 Exam: As noted in Physical Exam section. DDX IBNLT: asthma, COPD, bronchitis, viral URI, ACS, PE, unlikely to be other serious etiology but still considered are influenza, PNA, PTX, CHF, pericarditis , pneumonitis, allergic rxn W/U ordered: Labs EKG CXR TX ordered: DuoNebs SoluMedrol (if likely admission) EKG: Reviewed; results as noted in ECG Review section. CXR: No obvious focal consolidation Laboratory Tests 11/20/19 11/20/19 11/20/19 21:25 21:25 21:25 WBC 9.7 RBC 4.69 Hgb 14.0 Hct 41.3 MCV 88.2 MCH 29.8 MCHC 33.8 RDW 14.2 Plt Count 305 D MPV 8.0 D Absolute Neuts (auto) 5.5 Neutrophils % 56.7 D Lymphocytes % 29.2 D Monocytes % 8.0 Eosinophils % 5.7 H D Basophils % 0.4 Nucleated RBC % 0 PT with INR 13.50 H INR 1.14 H PTT (Actin FS) 29.2 D-Dimer Sodium 136 Potassium 5.1 Chloride 104 Carbon Dioxide 27 Anion Gap 6 L BUN 14.6 Creatinine 0.9 Est GFR (CKD-EPI)AfAm 110.27 Est GFR (CKD-EPI)NonAf 95.14 Random Glucose 138 H Calcium 8.6 Phosphorus Magnesium 2.2 Total Bilirubin 0.4 AST 80 H ALT 90 H Alkaline Phosphatase 90 Creatine Kinase 278 Creatine Kinase Index 0.5 CK-MB (CK-2) 1.4 Troponin I < 0.02 B-Natriuretic Peptide Total Protein 7.2 Albumin 3.4 11/20/19 11/20/19 21:25 21:25 WBC RBC Hgb Hct MCV MCH MCHC RDW Plt Count MPV Absolute Neuts (auto) Neutrophils % Lymphocytes % Monocytes % Eosinophils % Basophils % Nucleated RBC % PT with INR INR PTT (Actin FS) D-Dimer 571 H Sodium Potassium Chloride Carbon Dioxide Anion Gap BUN Creatinine Est GFR (CKD-EPI)AfAm Est GFR (CKD-EPI)NonAf Random Glucose Calcium Phosphorus 4.0 Magnesium Total Bilirubin AST ALT Alkaline Phosphatase Creatine Kinase Creatine Kinase Index CK-MB (CK-2) Troponin I B-Natriuretic Peptide 19.9 Total Protein Albumin EXAM: CT Angiogram (CTA) Chest w IMAGES: 947 EXAM DATE AND TIME: 2019-11-21 00:39:10 HISTORY: 54 year old man: Pulmonary embolus. Shortness of breath. COMPARISON: None. TECHNIQUE: CT Angiogram (CTA) Chest: Thin cut axial images were obtained during the administration of non-ionic iodinated IV contrast. 80 cc Omnipaque. Coronal and sagittal thin and thick slice MIP reformatted images were also generated. FINDINGS: The soft tissues of the lower neck appear unremarkable. The thyroid glands are normal in size and contour. The tracheobronchial airways are patent. There is no evidence of axillary or mediastinal adenopathy A few small scattered groundglass opacifications/infiltrates in the right upper lobe. The remaining pulmonary segments are clear. There are no pleural effusions. The heart size is normal. There are no coronary artery calcifications. The pulmonary arteries are patent to their fifth and sixth generation segmental and subsegmental branches, without evidence of filling defect or pulmonary embolus. The thoracic aorta ascending, arch and descending segments, great vessels arising from the aortic arch, and upper abdominal aortaare normal in diameter and wall thickness , without evidence of aneurysm or dissection. Osseous structures exhibit grossly normal mineralization without evidence of lytic or sclerotic lesions. The thoracic vertebral body heights and alignments are well maintained. heights and alignments are maintained. Upper abdominal organs appear normal. IMPRESSION: A few small scattered groundglass opacifications/infiltrates in the right upper lobe. The study is otherwise unremarkable: No evidence of pulmonary embolus, pleural effusion or pulmonary nodule. Repeat EKG: unchanged, benign. Repeat troponin negative. 11/21/19 03:09 The Pt has gotten significant relief of symptoms while in the ED. Workup is not concerning for emergency-level pathology at this time. Pt states they have their normal COPD medications at home including nebs and MDI. 5 day course prednisone 40 mg sent to pharmacy. Also sent is Levaquin for PNA. The Pt is appropriate for discharge with close outpatient follow up. They are comfortable with this plan and will follow up with PCP in 1-3 days. Specific return precautions are discussed and they will come back to the ER if necessary. Discharge - Discharge Information Problems reviewed: Yes Clinical Impression/Diagnosis: Dyspnea Qualifiers: Dyspnea type: other forms of dyspnea Qualified Code(s): R06.09 - Other forms of dyspnea Condition: Stable Disposition: HOME - Admission No - Additional Discharge Information Prescriptions: levoFLOXacin [Levaquin] 750 mg PO DAILY #4 tab predniSONE [Deltasone -] 20 mg PO DAILY #8 tablet - Follow up/Referral Referrals: Onur Coleman MD [Primary Care Provider] - - Patient Discharge Instructions Additional Instructions: You were seen in the ER for shortness of breath. We gave you steroids and breathing treatments which resolved your symptoms while you were here in the department. We did blood work and a chest x-ray which showed a pneumonia, so we gave you antibiotics sent to your pharmacy. After our assessment, we do not believe you are having a medical emergency at this time, and we believe you are safe to go home. We are sending a prescription for prednisone to your pharmacy as well. Please take the whole course as prescribed, and follow up with your primary care provider(s) in the next 1-3 days. Call their clinic [facility], tell them you were seen in the ER for asthma, and tell them you need an appointment. Please come back to the ER at any time (24 hours a day) for any new or worsening symptoms, like worsened wheezing/shortness of breath that is not relieved with your home medications, new severe chest pain, loss of consciousness, or seizure. If you are having severe or life threatening symptoms , or symptoms that make it unsafe to drive or have someone drive you, please call 911. You need a TB test with your primary doctor because this was an upper lung pneumonia. Please do this when you follow up with them. - Post Discharge Activity
[2019-11-20] MEDS ORDERED: ALBUTEROL SO4 2.5/IPRATROPIUM 0.5 INH SOL 3 ML VIAL.NEB. NEB ONE ×2 (21:11→21:12)
[2019-11-20] MEDS ORDERED: methylPREDNISolone NA SUCC 125 MG/2 ML VIAL ONE (21:12)
[2019-11-20] MEDS: ALBUTEROL SO4 2.5/IPRATROPIUM 0.5 INH SOL 3 ML VIAL.NEB. NEB SCH ×2 (21:29→21:31)
[2019-11-20 21:45] LABS: BASO % 0.4 % (0-2.0); EOS % 5.7 % (0-4.5); HEMATOCRIT 41.3 % (35.4-49); LYMPH % 29.2 % (8-40); MCH 29.8 pg (25.7-33.7); MCHC 33.8 g/dl (32.0-35.9); MEAN CELL VOLUME 88.2 fl (80-96); NEUT % 56.7 % (42.8-82.8); PLATELET COUNT 305 K/MM3 (134-434); RBC 4.69 M/mm3 (4.00-5.60); RDW 14.2 % (11.9-15.9); WHITE BLOOD COUNT 9.7 K/mm3 (4.0-10.0)
[2019-11-20 22:01] LABS: INR 1.14 (0.83-1.09); PROTHROMBIN TIME (PATIENT) 13.5 SEC (9.7-13.0)
[2019-11-20 22:04] LABS: ACTIVATED PTT 29.2 SECONDS (25.2-36.5)
[2019-11-20 22:17] LABS: N-TERMINAL BNP 19.9 pg/ml (5-125)
[2019-11-20 22:52] LABS: ALBUMIN 3.4 g/dl (3.4-5.0); ALK PHOS 90 U/L (45-117); ANION GAP 6 MMOL/L (8-16); BILIRUBIN,TOTAL 0.4 mg/dL (0.2-1); BLOOD UREA NITROGEN 14.6 mg/dL (7-18); CALCIUM 8.6 mg/dL (8.5-10.1); CHLORIDE 104 mmol/L (98-107); CO2 27 mmol/L (21-32); CREATININE 0.9 mg/dL (0.55-1.3); GLUCOSE,RANDOM 138 mg/dL (74-106); MAGNESIUM 2.2 mg/dL (1.8-2.4); POTASSIUM 5.1 mmol/L (3.5-5.1); SGOT/AST 80 U/L (15-37); SGPT/ALT 90 U/L (13-61); SODIUM 136 mmol/L (136-145); TOT PROT 7.2 g/dl (6.4-8.2)
[2019-11-20 23:04] VITALS: PULSE 94
[2019-11-21 01:16] VITALS: BP 124/68; TEMP 97.7
[2019-11-21] MEDS ORDERED: levoFLOXacin 750 MG TABLET PO SCH ×2 (03:54→10:00)
--- NOTE | 2019-11-21 11:28 | EKG ---
Test Reason : Blood Pressure : / mmHG Vent. Rate : 079 BPM Atrial Rate : 079 BPM P-R Int : 168 ms QRS Dur : 086 ms QT Int : 390 ms P-R-T Axes : 063 037 037 degrees QTc Int : 447 ms NORMAL SINUS RHYTHM NORMAL ECG WHEN COMPARED WITH ECG OF 20-NOV-2019 21:34, NO SIGNIFICANT CHANGE WAS FOUND Confirmed by CLARISA JORDAN MD ([id number]) on 11/21/2019 11:28:10 AM Referred By: Confirmed By:CLARISA JORDAN MD
--- NOTE | 2019-11-21 11:34 | EKG ---
Test Reason : Blood Pressure : / mmHG Vent. Rate : 085 BPM Atrial Rate : 085 BPM P-R Int : 164 ms QRS Dur : 086 ms QT Int : 358 ms P-R-T Axes : 057 028 050 degrees QTc Int : 426 ms NORMAL SINUS RHYTHM NORMAL ECG WHEN COMPARED WITH ECG OF 27-MAY-2019 11:08, NO SIGNIFICANT CHANGE WAS FOUND Confirmed by CLARISA JORDAN MD ([id number]) on 11/21/2019 11:34:14 AM Referred By: Confirmed By:CLARISA JORDAN MD
== END 2019-11-21 04:06 | disposition home or self-care (01) ==
LOC: JER 18:58
PROC: 3E033GC Introduction of Other Therapeutic Substance into Peripheral Vein, Percutaneous Approach (ICD-10-PCS; principal; 2019-11-20)
PROC: 3E0F7GC Introduction of Other Therapeutic Substance into Respiratory Tract, Via Natural or Artificial Opening (ICD-10-PCS; 2019-11-20)
PROC: 3E0337Z Introduction of Electrolytic and Water Balance Substance into Peripheral Vein, Percutaneous Approach (ICD-10-PCS; 2019-11-20)
DX: J45.901 Unspecified asthma with (acute) exacerbation (principal); R06.00 Dyspnea, unspecified
CPT/HCPCS: 36415; 71046-TC-FY; 71275-TC; 80053; 82550; 82553; 83735; 83880; 84100; 84484; 85025; 85379; 85610; 85730; 93005; 93010; 94640; 96361; 96374; 99283-25; J7030; Q9967

== ENCOUNTER 2022-06-17 23:04 | Inpatient (IN) | payer OTHER ==
[2022-06-17 23:12] VITALS: BMI 34.4
[2022-06-18 00:36] LABS: BASO % 0.6 % (0-2.0); EOS % 5.7 % (0-4.5); HEMATOCRIT 42.8 % (35.4-49); HEMOGLOBIN 14.5 GM/dL (11.7-16.9); MCH 29.5 pg (25.7-33.7); MEAN CELL VOLUME 86.8 fl (80-96); MEAN PLT VOLUME 7.9 fl (7.5-11.1); NEUT % 53.7 % (42.8-82.8); PLATELET COUNT 267 10^3/uL (134-434); RBC 4.93 M/mm3 (4.00-5.60); RDW 14.2 % (11.9-15.9); WHITE BLOOD COUNT 7.7 K/mm3 (4.0-10.0)
[2022-06-18 00:54] LABS: CALCIUM 9.3 mg/dL (8.5-10.1)
[2022-06-18 00:55] LABS: ALBUMIN 3.8 g/dl (3.4-5.0); BLOOD UREA NITROGEN 16.4 mg/dL (7-18)
[2022-06-18 00:58] LABS: CREATININE 0.9 mg/dL (0.55-1.3)
[2022-06-18 01:00] LABS: BILIRUBIN,TOTAL 0.3 mg/dL (0.2-1); TOT PROT 7.5 g/dl (6.4-8.2)
[2022-06-18] MEDS ORDERED: ASPIRIN 81 MG CHEWABLE TABLETS PO ONE (01:51)
[2022-06-18] MEDS ORDERED: ASPIRIN 81 MG CHEWABLE TABLETS ONE (03:08)
[2022-06-18] MEDS ORDERED: ALBUTEROL SO4 HFA INHALER IH SCH (06:30)
[2022-06-18] MEDS ORDERED: ALBUTEROL SO4 HFA INHALER IH ONE (06:48)
[2022-06-18] MEDS ORDERED: ALBUTEROL SO4 HFA INHALER IH PRN (06:59)
[2022-06-18] MEDS ORDERED: INSULIN SLIDING SCALE (NOVOLOG) 1 VIAL SQ SCH (07:00)
[2022-06-18 08:16] LABS: HEMATOCRIT 40.2 % (35.4-49); HEMOGLOBIN 13.9 GM/dL (11.7-16.9); MCHC 34.6 g/dl (32.0-35.9); MEAN CELL VOLUME 86.7 fl (80-96); MEAN PLT VOLUME 8.1 fl (7.5-11.1); PLATELET COUNT 266 10^3/uL (134-434); RBC 4.63 M/mm3 (4.00-5.60); WHITE BLOOD COUNT 8.1 K/mm3 (4.0-10.0)
[2022-06-18] MEDS ORDERED: TAMSULOSIN HCL 0.4 MG CAP PO SCH (08:30)
[2022-06-18 09:00] LABS: ALBUMIN 3.8 g/dl (3.4-5.0)
[2022-06-18 09:03] LABS: CREATININE 0.8 mg/dL (0.55-1.3)
[2022-06-18 09:04] LABS: BILIRUBIN,TOTAL 0.6 mg/dL (0.2-1); TOT PROT 7.3 g/dl (6.4-8.2)
[2022-06-18 09:05] LABS: BLOOD UREA NITROGEN 15.2 mg/dL (7-18); MAGNESIUM 2.3 mg/dL (1.8-2.4)
[2022-06-18 09:10] LABS: CHOLESTEROL 162 mg/dL (50-200)
[2022-06-18 09:11] LABS: TRIGLYCERIDES 93 mg/dL (0-150)
[2022-06-18 09:12] LABS: LDL CHOLESTEROL (ONLY SJRH) 108 mg/dL (5-100)
[2022-06-18] MEDS ORDERED: amLODIPine BESYLATE 10 MG TABLET (FP) ONE (09:14)
[2022-06-18] MEDS ORDERED: TAMSULOSIN HCL 0.4 MG CAP ONE (09:14)
[2022-06-18 09:15] LABS: HDL CHOLESTEROL 46 mg/dL (40-60)
[2022-06-18] MEDS ORDERED: ENOXAPARIN NA (PORCINE) 40 MG/0.4 ML DISP.SYRIN SQ ONE (09:15)
[2022-06-18 09:25] VITALS: RESP 18
[2022-06-18] MEDS ORDERED: ENOXAPARIN NA (PORCINE) 40 MG/0.4 ML DISP.SYRIN SQ SCH (10:00)
[2022-06-18] MEDS ORDERED: amLODIPine BESYLATE 10 MG TABLET (FP) PO SCH (10:00)
[2022-06-18 15:25] VITALS: BP 123/82; PULSE 85; TEMP 98.3
== END 2022-06-18 16:45 | disposition home or self-care (01) | DRG 203 ==
LOC: JER 23:04 → JERBED 06-18 00:06 → OBSVTOIN 06-18 03:08
PROVIDERS: ADMIT Hospitalist; ATTEND Internal Medicine
DX: R07.89 Other chest pain (principal); I10 Essential (primary) hypertension; E11.9 Type 2 diabetes mellitus without complications; J45.909 Unspecified asthma, uncomplicated; G47.30 Sleep apnea, unspecified
CPT/HCPCS: 0241U-QW; 36415; 71045-TC-FY; 80053; 80061; 82962; 83036; 83735; 84484; 85025; 85027; 85730; 93005; 93010; 93306-TC; 99285-25; G0378